=== PATIENT | male | born 1980 | race Two or more races ===

== ENCOUNTER → 2018-03-30 | Outpatient (CLI) | payer MEDICARE ==
[~2018-03-30] MED LIST: CALC667T2 PO; CAR3125T OR; CINA30TA2 PO; CLIN1CAP4 PO; INSLANTI SC; LIRA18IN2 SUBCUT; LOSA-49 PO; SACC250C PO; SEVE800T8 PO
[2018-03-30 12:31] LABS: Basophils # (auto) 0 uL; Basophils % (auto) 0.6 % (0.0-2.0); Eosinophils # (auto) 0.2 uL; Eosinophils % (auto) 3.4 % (0.0-7.0); Hemoglobin 12.2 g/dL (13.5-17.5); Lymphocytes # (auto) 0.9 uL; Lymphocytes % (auto) 12.9 % (10.0-50.0); Mean Corpuscular Hemoglobin 33.2 pg (28.0-32.0); Mean Corpuscular Hgb Conc. 33.9 g/dL (32.0-36.0); Monocytes # (auto) 0.6 uL; Monocytes % (auto) 9.7 % (0.0-12.0); Neutrophils # (auto) 4.9 uL; Neutrophils % (auto) 73.4 % (37.0-80.0); Platelet Count (auto) 163 10^3/uL (140-450); Red Blood Cells 3.67 10^6/uL (4.5-5.90); Red Cell Distribution Width 16.2 % (11.8-14.3); White Blood Cell 6.7 10^3/uL (4.4-10.8)
[2018-03-30 13:45] LABS: Albumin 3.6 g/dL (3.4-5.0); BUN/Creatinine Ratio 5.2; Bilirubin, Total 2.2 mg/dL (0.2-1.0); Calcium 9.5 mg/dL (8.5-10.1); Total Protein 9.3 g/dL (6.4-8.2)
== END | disposition home or self-care (01) ==
LOC: LAB 12:04
PROVIDERS: ATTEND Physician Assistant
DX: H33.301 Unspecified retinal break, right eye (principal); E11.610 Type 2 diabetes mellitus with diabetic neuropathic arthropathy; L30.9 Dermatitis, unspecified; N18.4 Chronic kidney disease, stage 4 (severe); Z99.2 Dependence on renal dialysis
CPT/HCPCS: 36415; 80053; 80061; 83036; 85025

== ENCOUNTER 2018-06-23 05:23 | Inpatient (IN) | payer MEDICARE, MEDICAID ==
[~2018-06-23] VITALS: Ht 170.2 cm; Wt 101.4 kg
[2018-06-23] MEDS ORDERED: cloNIDine HCL 0.1 MG TAB PO ONE ×2 (06:00→06:45)
[2018-06-23 06:35] LABS: Basophils # (auto) 0.1 uL; Basophils % (auto) 0.5 % (0.0-2.0); Eosinophils # (auto) 0.2 uL; Hematocrit 30.3 % (41.0-53.0); Hemoglobin 10.3 g/dL (13.5-17.5); Lymphocytes # (auto) 0.7 uL; Lymphocytes % (auto) 5.7 % (10.0-50.0); Mean Corpuscular Hemoglobin 33.2 pg (28.0-32.0); Mean Corpuscular Hgb Conc. 33.8 g/dL (32.0-36.0); Mean Corpuscular Volume 98.2 fL (80.0-100.0); Monocytes # (auto) 0.9 uL; Monocytes % (auto) 8.1 % (0.0-12.0); Neutrophils # (auto) 9.7 uL; Neutrophils % (auto) 83.7 % (37.0-80.0); Platelet Count (auto) 226 10^3/uL (140-450); Red Blood Cells 3.09 10^6/uL (4.5-5.90); Red Cell Distribution Width 15.8 % (11.8-14.3); White Blood Cell 11.6 10^3/uL (4.4-10.8)
[2018-06-23 06:55] LABS: Albumin 2.7 g/dL (3.4-5.0); Calcium 8.7 mg/dL (8.5-10.1); Potassium 3.8 mmol/L (3.5-5.1)
[2018-06-23 07:02] LABS: BUN/Creatinine Ratio 5.1; Bilirubin, Total 10.1 mg/dL (0.2-1.0); Total Protein 8.1 g/dL (6.4-8.2)
[2018-06-23] MEDS ORDERED: PIPERACILLIN-TAZOB 3.375GM 100 ML IV ONE (08:45)
[2018-06-23] MEDS ORDERED: PROMETHAZINE HCL 25 MG/ML 1ML IV PRN (09:00)
[2018-06-23] MEDS ORDERED: TEMAZEPAM 15 MG CAP PO PRN (09:00)
[2018-06-23] MEDS ORDERED: LACTULOSE 20Gm/30ML SOLN PO PRN (09:00)
[2018-06-23] MEDS ORDERED: DEXTROSE (50%) 50ML SYRG IV PRN (09:00)
[2018-06-23] MEDS ORDERED: LORazepam 2MG/ML-1ML VIAL IV PRN ×2 (09:00→17:45)
[2018-06-23] MEDS ORDERED: LORazepam 0.5 MG TAB PO PRN (09:00)
[2018-06-23] MEDS ORDERED: ACETAMINOPHEN 500 MG TAB PO PRN (09:00)
[2018-06-23] MEDS ORDERED: KETOROLAC TROMETH 30 MG/ML 1ML VIAL IV PRN (09:00)
[2018-06-23] MEDS ORDERED: MORPHINE SULFATE 4 MG/ML SYR/VIAL IV PRN (09:00)
[2018-06-23] MEDS ORDERED: NITROGLYCERIN 0.4 MG SL TAB SL PRN (09:00)
[2018-06-23] MEDS ORDERED: traMADol HCL 50 MG TAB PO PRN (09:00)
[2018-06-23] MEDS ORDERED: LABETALOL HCL 5 MG/ML ML 20ML VIAL IV PRN (09:00)
[2018-06-23] MEDS: ASPirin 81 mg TAB PO SCH (09:19)
[2018-06-23] MEDS: CARVEDILOL 3.125 MG TAB PO SCH ×2 (09:20→22:47)
[2018-06-23 09:25] LABS: INR 1.01 (0.9-1.15); Partial Thromboplastin Time 30.8 sec (23.78-33.04); Prothrombin Time 10.8 sec (9.27-12.13)
[2018-06-23] MEDS: ENOXAPARIN SOD 30 MG/0.3 ML SYRINGE SC SCH (10:06)
[2018-06-23] MEDS: InsuLIN REG 1unit/0.01ml Soln (100units/ml) SC SCH ×4 (11:30→22:00)
[2018-06-23] MEDS: SEVELAMER 800 MG TAB PO SCH ×2 (11:54→17:03)
[2018-06-23] MEDS: CALCIUM ACETATE 667 MG CAP PO SCH ×2 (11:54→17:03)
[2018-06-23] MEDS: ACCU-CHEK COMFORT CURVE STRIP VI SCH ×3 (11:59→22:00)
[2018-06-23 13:00] VITALS: BP 133/78
[2018-06-23] MEDS ORDERED: PATIENTS OWN MEDICATION (Sevelamer Carbonate (Renvela) 2 TAB) PO SCH (14:00)
[2018-06-23] MEDS ORDERED: CALCIUM ACETATE 667 MG PO SCH (14:00)
[2018-06-23 14:26] LABS: Calcium 8.4 mg/dL (8.5-10.1); Potassium 3.8 mmol/L (3.5-5.1)
[2018-06-23 14:33] LABS: Albumin 2.4 g/dL (3.4-5.0); BUN/Creatinine Ratio 5.1; Bilirubin, Total 9.4 mg/dL (0.2-1.0); Total Protein 7.8 g/dL (6.4-8.2)
[2018-06-23] MEDS ORDERED: hydrOXYzine HCL 10 MG TAB PO PRN (14:45)
[2018-06-23 14:50] LABS: Amylase 33 U/L (25-115); Lipase 138 U/L (73-393)
[2018-06-23] MEDS ORDERED: hydrALAZINE HCL 20 MG/ML VL IV PRN (16:45)
[2018-06-23 17:00] VITALS: BP 156/87
[2018-06-23] MEDS: CINACALCET HYDROCHLORIDE 30 MG TAB PO SCH (17:03)
[2018-06-23 22:00] VITALS: BP 131/77
[2018-06-23] MEDS: INSULIN LANTUS (GLARGINE) 1 /0.01ml (100units/ml) SC SCH (22:00)
[2018-06-23] MEDS: LOSARTAN POTASSIUM 50 MG TAB PO SCH (22:00)
[2018-06-24 05:00] VITALS: BP 131/71
[2018-06-24 06:20] LABS: Hematocrit 28.3 % (41.0-53.0); Mean Corpuscular Hemoglobin 34.8 pg (28.0-32.0); Mean Corpuscular Hgb Conc. 35.2 g/dL (32.0-36.0); Platelet Count (auto) 199 10^3/uL (140-450); Red Blood Cells 2.86 10^6/uL (4.5-5.90); Red Cell Distribution Width 15.8 % (11.8-14.3); White Blood Cell 10.3 10^3/uL (4.4-10.8)
[2018-06-24 06:28] LABS: Basophils % (manual) 0 (0.0-2.0); Blast Cells 0; Eosinophils % (manual) 0 (0-7); Metamyelocytes % 0; Promyelocytes % 0; Reactive Lymphocytes 0
[2018-06-24 06:31] LABS: Albumin 2.4 g/dL (3.4-5.0); Calcium 8.9 mg/dL (8.5-10.1); Potassium 4.3 mmol/L (3.5-5.1)
[2018-06-24 06:36] LABS: BUN/Creatinine Ratio 4.6; Bilirubin, Total 8.9 mg/dL (0.2-1.0); Total Protein 7.6 g/dL (6.4-8.2)
[2018-06-24] MEDS: ACCU-CHEK COMFORT CURVE STRIP VI SCH ×4 (06:50→21:12)
[2018-06-24] MEDS: InsuLIN REG 1unit/0.01ml Soln (100units/ml) SC SCH ×4 (06:51→21:23)
[2018-06-24 07:13] LABS: Band Neutrophils % (manual) 10; Lymphocytes % (manual) 12 (10.0-50.0); Monocytes % (manual) 5 (0-12); Myelocytes % 1
[2018-06-24 07:27] VITALS: BP 121/74
[2018-06-24] MEDS: SEVELAMER 800 MG TAB PO SCH ×3 (08:13→18:53)
[2018-06-24] MEDS: CALCIUM ACETATE 667 MG CAP PO SCH ×3 (08:13→18:53)
[2018-06-24] MEDS: ASPirin 81 mg TAB PO SCH (10:21)
[2018-06-24] MEDS: ENOXAPARIN SOD 30 MG/0.3 ML SYRINGE SC SCH (10:22)
[2018-06-24] MEDS: CARVEDILOL 3.125 MG TAB PO SCH ×2 (10:22→21:23)
[2018-06-24 11:48] VITALS: BP 139/89
[2018-06-24 16:48] VITALS: BP 150/85
[2018-06-24] MEDS: CINACALCET HYDROCHLORIDE 30 MG TAB PO SCH (18:53)
[2018-06-24] MEDS: INSULIN LANTUS (GLARGINE) 1 /0.01ml (100units/ml) SC SCH (21:11)
[2018-06-24] MEDS: LOSARTAN POTASSIUM 50 MG TAB PO SCH (21:11)
[2018-06-24 23:25] VITALS: BP 142/78
[2018-06-25 05:11] VITALS: BP 127/73
[2018-06-25] MEDS: InsuLIN REG 1unit/0.01ml Soln (100units/ml) SC SCH ×4 (06:12→21:43)
[2018-06-25] MEDS: ACCU-CHEK COMFORT CURVE STRIP VI SCH ×4 (06:12→21:42)
[2018-06-25 07:34] VITALS: BP 137/76
[2018-06-25] MEDS: CALCIUM ACETATE 667 MG CAP PO SCH ×3 (08:00→18:03)
[2018-06-25] MEDS: SEVELAMER 800 MG TAB PO SCH ×3 (08:00→18:03)
[2018-06-25] MEDS: ENOXAPARIN SOD 30 MG/0.3 ML SYRINGE SC SCH (09:21)
[2018-06-25 09:39] LABS: Hepatitis B Surface Antibody Positive
[2018-06-25 09:42] LABS: Folate (Folic Acid) 3.46 ng/mL (5.38-24)
[2018-06-25] MEDS: CARVEDILOL 3.125 MG TAB PO SCH ×2 (10:00→21:42)
[2018-06-25] MEDS: ASPirin 81 mg TAB PO SCH (10:00)
[2018-06-25 10:12] LABS: Hepatitis A Total Antibody Negative
[2018-06-25] MEDS ORDERED: EPOETIN ALFA 2,000 UNIT/1 ML VIAL IV ONE (13:45)
[2018-06-25] MEDS ORDERED: EPOETIN ALFA 3,000 UNIT/1 ML VIAL IV ONE (13:45)
[2018-06-25] MEDS ORDERED: SODIUM CHL 0.9% 1000 ML BAG XX ONE (13:45)
[2018-06-25 14:10] LABS: Hepatitis B Core Total AB Negative
[2018-06-25 14:11] LABS: Hepatitis B Surface Antigen Negative (Negative)
[2018-06-25 14:12] LABS: Hepatitis C Antibody Negative (Negative)
[2018-06-25 17:25] VITALS: BP 148/90
[2018-06-25] MEDS: CINACALCET HYDROCHLORIDE 30 MG TAB PO SCH (18:07)
[2018-06-25] MEDS: LOSARTAN POTASSIUM 50 MG TAB PO SCH (21:42)
[2018-06-25] MEDS: INSULIN LANTUS (GLARGINE) 1 /0.01ml (100units/ml) SC SCH (21:43)
[2018-06-25 22:00] VITALS: BP 135/80
[2018-06-26 05:00] VITALS: BP 119/60
[2018-06-26] MEDS: ACCU-CHEK COMFORT CURVE STRIP VI SCH ×3 (07:00→17:00)
[2018-06-26] MEDS: InsuLIN REG 1unit/0.01ml Soln (100units/ml) SC SCH ×3 (07:00→17:00)
[2018-06-26 07:08] LABS: Potassium 4.9 mmol/L (3.5-5.1)
[2018-06-26 07:09] LABS: BUN/Creatinine Ratio 5.2; Calcium 8.3 mg/dL (8.5-10.1)
[2018-06-26 07:10] LABS: Albumin 2.4 g/dL (3.4-5.0); Total Protein 7.6 g/dL (6.4-8.2)
[2018-06-26 08:00] VITALS: BP 130/75
[2018-06-26] MEDS: SEVELAMER 800 MG TAB PO SCH ×2 (08:44→12:11)
[2018-06-26] MEDS: CALCIUM ACETATE 667 MG CAP PO SCH ×2 (08:44→12:11)
[2018-06-26 09:00] VITALS: BP 130/75
[2018-06-26] MEDS: CARVEDILOL 3.125 MG TAB PO SCH (09:57)
[2018-06-26] MEDS: ASPirin 81 mg TAB PO SCH (09:57)
[2018-06-26] MEDS: ENOXAPARIN SOD 30 MG/0.3 ML SYRINGE SC SCH (09:58)
[2018-06-26 13:00] VITALS: BP 124/69
[2018-06-26 17:00] VITALS: BP 152/77
[2018-06-26 17:26] VITALS: BP 101/48
== END 2018-06-26 17:26 | disposition home or self-care (01) | DRG 100 ==
LOC: EDUNIT# 05:23 → ER 05:23 → EDBD 05:23 → TELE 08:57 → TELE-WESTW 10:25
PROVIDERS: ADMIT Internal Medicine; ATTEND Family Medicine
PROC: 5A1D70Z Performance of Urinary Filtration, Intermittent, Less than 6 Hours Per Day (ICD-10-PCS; principal; 2018-06-23)
PROC: 5A1D70Z Performance of Urinary Filtration, Intermittent, Less than 6 Hours Per Day (ICD-10-PCS; 2018-06-26)
DX: R56.9 Unspecified convulsions (principal); N18.6 End stage renal disease; G45.9 Transient cerebral ischemic attack, unspecified; R17 Unspecified jaundice; N25.81 Secondary hyperparathyroidism of renal origin; E87.1 Hypo-osmolality and hyponatremia; I12.0 Hypertensive chronic kidney disease with stage 5 chronic kidney disease or end stage renal disease; N17.9 Acute kidney failure, unspecified; R55 Syncope and collapse; E11.42 Type 2 diabetes mellitus with diabetic polyneuropathy; E11.22 Type 2 diabetes mellitus with diabetic chronic kidney disease; D63.1 Anemia in chronic kidney disease; I08.0 Rheumatic disorders of both mitral and aortic valves; E11.21 Type 2 diabetes mellitus with diabetic nephropathy; E11.319 Type 2 diabetes mellitus with unspecified diabetic retinopathy without macular edema; I16.0 Hypertensive urgency; R79.89 Other specified abnormal findings of blood chemistry; R74.8 Abnormal levels of other serum enzymes; E11.610 Type 2 diabetes mellitus with diabetic neuropathic arthropathy; E11.65 Type 2 diabetes mellitus with hyperglycemia; H54.61 Unqualified visual loss, right eye, normal vision left eye; K82.8 Other specified diseases of gallbladder; Z89.411 Acquired absence of right great toe; Z99.2 Dependence on renal dialysis; Z83.3 Family history of diabetes mellitus; Z82.49 Family history of ischemic heart disease and other diseases of the circulatory system; Z95.9 Presence of cardiac and vascular implant and graft, unspecified; Z79.899 Other long term (current) drug therapy; Z79.84 Long term (current) use of oral hypoglycemic drugs
CPT/HCPCS: 36415; 70450; 70551; 71045; 74181; 76705; 78226; 80053; 80061; 82150; 82378; 82390; 82550; 82607; 82728; 82746; 82962; 83036; 83540; 83550; 83690; 83880; 84443; 84484; 85007; 85025; 85027; 85610; 85652; 85730; 86038; 86225; 86235; 86704; 86706; 86708; 86803; 87040; 87045; 87340; 87493; 87899; 90935; 93306; 95819; 96372; G0378; J1642; J1815; J2543; Q4081